=== PATIENT | female | born 1990 | race Caucasian/White ===

== ENCOUNTER 2018-04-21 17:39 | Emergency (ER) | payer OTHER ==
[2018-04-21 18:16] VITALS: BP 141/90
--- NOTE | 2018-04-21 19:37 | UC ---
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 Sustained a cat bite to her left hand today about an hour and a half [employer]. Cat is up-to-date on all vaccinations. Patient is up- to-date on her tetanus immunization. - History of Current Complaint Chief Complaint: UCBiteInjury Stated Complaint: CAT BITE Time Seen by Provider: 04/21/18 19:33 Hx Obtained From: Patient Hx Last Menstrual Period: 1 week ago Severity Currently: Mild Severity Initially: Mild Pain Intensity: 2 Pain Scale Used: 0-10 Numeric Onset/Duration: Sudden Onset, Lasting Hours, Still Present Type of Bite: Pet Has Animal Been Immunized?: Yes Character: Puncture Aggravating Factor(s): Nothing Alleviating Factor(s): Nothing Associated Signs And Symptoms: Negative: Fever, Erythema, Drainage Animal Available for Observation: Yes - Allergies/Home Medications Allergies/Adverse Reactions: Allergies Allergy/AdvReac Type Severity Reaction Status Date / Time No Known Allergies Allergy Verified 04/21/18 18:12 Home Medications: Home Medications Ibuprofen 200 mg PO Q6HR PRN 04/21/18 [History Confirmed 04/21/18] PMH/Surg Hx/FS Hx/Imm Hx Previously Healthy: Yes - Surgical History Surgical History: None Surgery Procedure, Year, and Place: denies - Family History Known Family History: Negative: Hypertension - Social History Alcohol Use: Weekly Substance Use Type: None Smoking Status (MU): Never Smoked Tobacco - Immunization History Most Recent Tetanus Shot: 4 years ago Review of Systems Constitutional: Negative Skin: Other - PUNCTURE WOUND (CAT BITE) LEFT HAND Respiratory: Negative Cardiovascular: Negative Gastrointestinal: Negative Musculoskeletal: Negative All Other Systems Reviewed And Are Negative: Yes Physical Exam Triage Information Reviewed: Yes Appearance: Well-Appearing, No Pain Distress, Well-Nourished Vital Signs: Initial Vital Signs Temp 99.0 F 04/21/18 18:12 Pulse 78 04/21/18 18:12 Resp 18 04/21/18 18:12 BP 141/90 04/21/18 18:12 Pulse Ox 100 04/21/18 18:12 Vital Signs Reviewed: Yes Eyes: Positive: Conjunctiva Clear ENT: Positive: Hearing grossly normal Neck: Positive: Supple Respiratory: Positive: No respiratory distress, No accessory muscle use Cardiovascular: Positive: Pulses Normal Musculoskeletal: Positive: ROM Intact, No Edema Neurological: Positive: Alert Psychological: Positive: Age Appropriate Behavior Skin: Positive: Other - PUNCTURE WOUND 1ST [employer] LEFT HAND. [employer] Bite Injury Course/Dx - Course Course Of Treatment: PT DECLINES XRAY. STATES NO CONCERN FOR BONY INJURY. AUGMENTIN. FOLLOW-UP IF NEEDED. - Differential Dx/Diagnosis Provider Diagnoses: CAT BITE LEFT HAND Discharge - Sign-Out/Discharge Documenting (check all that apply): Patient Departure All imaging exams completed and their final reports reviewed: No Studies - Discharge Plan Condition: Stable Disposition: HOME Prescriptions: Amoxicillin/Clavulanate TAB* [Augmentin TAB 875*] 875 mg PO BID #20 tab Patient Education Materials: Animal Bite (ED) Referrals: No Primary Care Phys,NOPCP [Primary Care Provider] - Additional Instructions: TAKE THE AUGMENTIN FOR THE FULL COURSE. SEEK FOLLOW-UP IF YOU DEVELOP SPREADING REDNESS OF THE SKIN, PURULENT DRAINAGE, FEVER, INCREASED PAIN OR ANY OTHER CONCERNING SYMPTOMS. CALL THE NUMBER BELOW FOR ASSISTANCE IN ESTABLISHING WITH A PCP An additional resource available to assist in finding the appropriate physician for your health care needs is [facility] ([facility]). You may contact them by calling [phone]. - Billing Disposition and Condition Condition: STABLE Disposition: Home
== END 2018-04-21 19:40 | disposition home or self-care (01) ==
LOC: UCEAST 17:39
DX: S61.432A Puncture wound without foreign body of left hand, initial encounter (principal); W55.01XA Bitten by cat, initial encounter; Y93.9 Activity, unspecified; Y92.9 Unspecified place or not applicable
CPT/HCPCS: 99202; G0463